=== PATIENT | male | born 1940 | race Caucasian/White ===

== ENCOUNTER 2018-06-13 07:00 | Day surgery (SDC) | payer OTHER ==
[~2018-06-13] VITALS: Ht 167.6 cm; Wt 82.6 kg
[~2018-06-13 07:00] MED LIST: ADULT ASPIRIN81 MG PO; ARICEPT10 MG PO; COZAAR100 MG PO; GABAPENTIN400 MG PO; LIPITOR80 MG PO; METFORMIN HCL750 MG PO; NORVASC5 MG PO; PLAVIX75 MG PO; PRILOSEC PO
[2018-06-13] MEDS ORDERED: OMEPRAZOLE40 MG PO (09:08)
== END 2018-06-14 08:00 | disposition home or self-care (01) ==
LOC: CIR.AMB 07:00 → SURH 08:10 → O/R 08:10 → SURH 12:45 → EDSTATUS 12:45 → SURH 15:26 → O/R 15:26 → SURH 16:15 → CIR.AMB 06-14 08:00 → SURH 06-14 17:40
DX: C20 Malignant neoplasm of rectum (principal); I11.9 Hypertensive heart disease without heart failure; G47.33 Obstructive sleep apnea (adult) (pediatric); E11.9 Type 2 diabetes mellitus without complications; I25.10 Atherosclerotic heart disease of native coronary artery without angina pectoris; I25.2 Old myocardial infarction; I70.0 Atherosclerosis of aorta; Z85.46 Personal history of malignant neoplasm of prostate

== ENCOUNTER → 2018-12-01 | Day surgery (SDC) | payer OTHER ==
[~2018-12-01] MED LIST changes: +OMEPRAZOLE40 MG PO
== END | disposition home or self-care (01) ==
LOC: ADM 11-23 12:15 → AMB-ENDOS 09:37
DX: C20 Malignant neoplasm of rectum (principal)

== ENCOUNTER 2019-09-28 06:47 | Day surgery (SDC) | payer OTHER | END 2019-09-28 12:00 | disposition home or self-care (01) | LOC: AMB-ENDOS 06:47 → ADM 13:15 | DX: D12.8 Benign neoplasm of rectum (principal); K57.30 Diverticulosis of large intestine without perforation or abscess without bleeding; K64.1 Second degree hemorrhoids ==

== ENCOUNTER 2020-01-24 13:39 | Inpatient (IN) | payer OTHER ==
[~2020-01-24] VITALS: Ht 167.6 cm; Wt 76.2 kg
== END 2020-02-22 19:29 | disposition home or self-care (01) | DRG 331 ==
LOC: O/R 02-19 07:05 → SURH 02-19 07:05
PROVIDERS: ADMIT Colon & Rectal Surgery; ATTEND Colon & Rectal Surgery
PROC: 0DBN4ZZ Excision of Sigmoid Colon, Percutaneous Endoscopic Approach (ICD-10-PCS; 2020-02-19)
PROC: 07BC4ZX Excision of Pelvis Lymphatic, Percutaneous Endoscopic Approach, Diagnostic (ICD-10-PCS; 2020-02-19)
PROC: 0DTP4ZZ Resection of Rectum, Percutaneous Endoscopic Approach (ICD-10-PCS; principal; 2020-02-19 10:30)
DX: C20 Malignant neoplasm of rectum (principal); R59.0 Localized enlarged lymph nodes; E11.9 Type 2 diabetes mellitus without complications; I25.10 Atherosclerotic heart disease of native coronary artery without angina pectoris